=== PATIENT | female | born 1945 | race Two or more races ===

== ENCOUNTER 2024-02-10 10:41 | Emergency (ER) | payer OTHER ==
[~2024-02-10] VITALS: Ht 157.5 cm; Wt 61.6 kg
[2024-02-10 15:27] LABS: Basophils # (auto) 0.1 10 ^3/uL (0-0.2); Basophils % (auto) 0.9 % (0.0-2.0); Eosinophils # (auto) 0.2 10 ^3/uL (0-0.8); Eosinophils % (auto) 3.2 % (0.0-7.0); Hematocrit 39.9 % (36.0-46.0); Hemoglobin 13.5 g/dL (12.2-16.2); Lymphocytes # (auto) 2.5 10 ^3/uL (0.4-5.4); Lymphocytes % (auto) 32.2 % (10.0-50.0); Mean Corpuscular Hemoglobin 33.7 pg (28.0-32.0); Mean Corpuscular Hgb Conc. 33.9 g/dL (32.0-36.0); Mean Corpuscular Volume 99.4 fL (80.0-100.0); Monocytes # (auto) 0.6 10 ^3/uL (0-1.3); Monocytes % (auto) 7.2 % (0.0-12.0); Neutrophils # (auto) 4.4 10 ^3/uL (1.6-8.6); Neutrophils % (auto) 56.5 % (37.0-80.0); Platelet Count (auto) 220 10^3/uL (140-450); Red Blood Cells 4.01 10^6/uL (4.0-5.20); Red Cell Distribution Width 13.6 % (11.8-14.3); White Blood Cell 7.8 10^3/uL (4.4-10.8)
[2024-02-10 15:45] LABS: Alanine Aminotransferase 18 U/L (7-40); Albumin 4.5 g/dL (3.2-4.8); Alkaline Phosphatase 98 U/L (46-116); Anion Gap 2 (5-15); Aspartate Aminotransferase 11 U/L (13-40); Blood Urea Nitrogen 11 mg/dL (9-23); Calcium 10.6 mg/dL (8.7-10.4); Carbon Dioxide 27 mmol/L (20-30); Chloride 109 mmol/L (98-107); Glucose 90 mg/dL (74-106); Potassium 4.3 mmol/L (3.5-5.1); Sodium 138 mmol/L (136-145)
[2024-02-10 15:46] LABS: Bilirubin, Total 0.4 mg/dL (0.2-1.0); Total Protein 7.6 g/dL (5.7-8.2)
[2024-02-10 22:01] VITALS: BP 174/94; PULSE 85; RESP 16; TEMP 98.1; O2SAT 97
[2024-02-10] MEDS: HYDROcodone-ACET 5/325MG TAB PO ONE (22:18)
[2024-02-10] MEDS: FUROSEMIDE 40 MG/4 ML VIAL IV ONE (22:36)
== END 2024-02-10 22:55 | disposition home or self-care (01) ==
LOC: ER 10:41
DX: S22.32XA Fracture of one rib, left side, initial encounter for closed fracture (principal); S00.03XA Contusion of scalp, initial encounter; R91.1 Solitary pulmonary nodule; Z88.0 Allergy status to penicillin; X50.1XXA Overexertion from prolonged static or awkward postures, initial encounter; Y93.89 Activity, other specified; Y99.8 Other external cause status; J44.9 Chronic obstructive pulmonary disease, unspecified
CPT/HCPCS: 36415; 70450; 71045; 71101; 72125; 73030; 80053; 82550; 83605; 83880; 84484; 85025; 96374; 99285; J1940